=== PATIENT | male | born 1995 | race Hispanic/Latino ===

== ENCOUNTER 2021-06-26 10:13 | Emergency (ER) | payer OTHER, SELFPAY ==
[2021-06-26 10:13] VITALS: BP 139/79; PULSE 79; RESP 16; TEMP 36.7; O2SAT 100; BMI 28.3
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
[2021-06-26] MEDS: Ibuprofen 600 MG Tablet PO (11:02)
[2021-06-26 11:22] LABS: CPK Total, Creatine Kinase 209 U/L (39-308)
== END 2021-06-26 12:21 | disposition home or self-care (01) ==
PROVIDERS: Emergency Provider Emergency Medicine; Visit Provider Emergency Medicine
DX: U07.1 COVID-19 (principal); M54.9 Dorsalgia, unspecified; M79.10 Myalgia, unspecified site
CPT/HCPCS: 82550; 87426; 99283; A4216

== ENCOUNTER 2022-06-06 06:18 | Emergency (ER) | payer OTHER, SELFPAY ==
[2022-06-06 06:19] VITALS: BP 146/100; PULSE 86; RESP 18; TEMP 36.6; O2SAT 100; BMI 29.0
--- NOTE | 2022-06-06 06:26 | EX.ED.VIS.UR ---
HPI HPI - URI History of Present Illness Chief Complaint: Cold Sx Narrative Narrative: 27-year-old male who denies significant past medical history presents with URI type symptoms for the last 3 days. States he has had a cough, runny nose and nasal congestion, sore throat, along with myalgias and arthralgias. He states his entire body hurts. He left work today because he has had the symptoms that have been ongoing. He is taking [id number] decongestants and analgesics including DayQuil and NyQuil. ROS ROS ED ROS Narrative Constitutional: No fever, questionable chills. HEENT: Positive sore throat. No neck pain. No loss of vision. Positive nasal congestion and rhinorrhea. Cardiovascular: No chest pain. No palpitations. No pedal edema. Respiratory: Positive cough, no shortness of breath. Abdominal: No abdominal pain. No nausea. No vomiting. Genitourinary: No dysuria. No hematuria. Musculoskeletal: Diffuse myalgias. Diffuse arthralgias. Neurologic: No headaches. No dizziness. No lightheadedness. Skin: No rash. No change in color. Psychiatric: No depression. No anxiety. [facility] Home Medications NK 06/06/22 [History Last Taken Unknown] Allergy/AdvReac Type Severity Reaction Status Date / Time No Known Allergies Allergy Verified 06/06/22 06:21 Social History Smoking Status: Never smoker EXAM Physical Exam Narrative Exam Narrative: Afebrile. Vital signs noted. HEENT: Normocephalic. Atraumatic. PERRL, EOMI. Neck soft and supple. No point tenderness or step off. No meningismus. Mild pharyngeal erythema. Positive nasal congestion. Cardiovascular: Regular rate and rhythm. No murmurs, rubs, or gallops appreciated. Respiratory: No tachypnea. Lungs clear to auscultation bilaterally. Gastrointestinal: Abdomen soft, nontender, with normoactive bowel sounds. No rebound or guarding. Neurological: Awake. Alert. Nonfocal, nonlateralizing. Skin: No rash. Normal color. No pallor. Musculoskeletal: No pedal edema. Full range of motion extremities. Const Vital Signs: 06/06/22 06:19 06/06/22 06:21 Temperature 97.8 F Temperature Source Temporal Pulse Rate 86 Respiratory Rate 18 Respiratory Effort Normal Non-Labored Respiratory Pattern Normal Blood Pressure 146/100 H Blood Pressure Mean 115 Pulse Ox 100 Oxygen Delivery Method Room Air MDM MDM MDM Narrative Medical decision making narrative: Patient was swabbed for COVID and influenza along with rapid strep test performed. Pulse ox is 100% on room air without evidence of hypoxia. I do not feel chest x-ray is indicated. I do feel that treatment is symptomatic. He is negative for strep pharyngitis. He is, however positive for influenza a and negative for COVID. As his symptoms have been ongoing for longer than 3 days, I do not feel that Tamiflu is indicated. He was given a note to be off work today and tomorrow. He will take [id number] medications and follow-up with a primary care provider. I feel he can be discharged safely home with follow-up. Return instructions to the emergency department were reviewed. Disposition is discharged home in stable condition. Discharge Plan Triage Chief Complaint: Cold Sx ED Provider: Vito Larson Dx/Rx/DC Orders Clinical Impression: URI (upper respiratory infection), Influenza A Instructions: ED Influenza (Adult) Prescriptions: No Action NK Stand Alone Forms: ED Work / School Excuse Primary Care Provider: Care Physician,No Primary Referrals: Melissa Tapia DO [Med Staff - Primary Class Teacher] - As Needed Care Physician,No Primary [Primary Care Provider] - Disposition Disposition: Home, Self Care
== END 2022-06-06 07:11 | disposition home or self-care (01) ==
PROVIDERS: Emergency Provider Emergency Medicine; Visit Provider Emergency Medicine
DX: J10.1 Influenza due to other identified influenza virus with other respiratory manifestations (principal); Z20.822 Contact with and (suspected) exposure to COVID-19
CPT/HCPCS: 87428; 87880; 99282

== ENCOUNTER 2022-10-17 13:12 | Emergency (ER) | payer OTHER, SELFPAY ==
[2022-10-17 13:13] VITALS: BP 155/101; PULSE 101; RESP 18; TEMP 36.3; O2SAT 97; BMI 27.7
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
[2022-10-17] MEDS: HYDROcodone Bitartrate/Apap 5/325 Tablet PO (14:14)
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
== END 2022-10-17 15:41 | disposition home or self-care (01) ==
PROVIDERS: Emergency Provider Emergency Medicine; Visit Provider Emergency Medicine
DX: S46.912A Strain of unspecified muscle, fascia and tendon at shoulder and upper arm level, left arm, initial encounter (principal); V89.2XXA Person injured in unspecified motor-vehicle accident, traffic, initial encounter
CPT/HCPCS: 73030; 99282